=== PATIENT | male | born 1970 | race Two or more races ===

== ENCOUNTER 2016-03-28 22:20 | Emergency (ER) | payer OTHER ==
[~2016-03-28] VITALS: Ht 170.2 cm; Wt 131.1 kg
[2016-03-28] MEDS ORDERED: LORAZEPAM 1 MG TABLET ONE (23:00)
[2016-03-28] MEDS ORDERED: LORAZEPAM 1 MG TABLET PO ONE (23:00)
[2016-03-29 00:07] VITALS: BP 130/65
== END 2016-03-29 00:08 | disposition home or self-care (01) ==
LOC: ER 22:27
DX: F41.9 Anxiety disorder, unspecified (principal)
CPT/HCPCS: 71010; 93005 ×2; 99284; A4606; Z7610